=== PATIENT | male | born 1985 | race Caucasian/White ===

== ENCOUNTER 2018-04-10 12:33 | Emergency (ER) | payer OTHER ==
[2018-04-10] MEDS ORDERED: TDAP ADULT 0.5 ML INJ (BOOSTRIX) IM ONE (13:14)
--- NOTE | 2018-04-10 13:14 | EDPHY ---
H & P Smoking Status: Former smoker Time Seen by Provider: 04/10/18 13:13 HPI/ROS: CHIEF COMPLAINT: Right 5th finger laceration HISTORY OF PRESENT ILLNESS: 33-year-old male with out-of-date tetanus works at [employer], had a wine glass breaking his hand sustaining laceration to his right 5th digit proximal phalanx palmar aspect. No paresthesia. No flexor deficits. PHYSICAL EXAM (Prior to examination, patient consented to physical exam, hands were washed and my usual and customary physical exam procedures followed) 1) GENERAL: Well-developed, well-nourished, alert and oriented. Appears to be in no acute distress. 2) HEAD: Normocephalic 3) HEENT: sclera anicteric 4) LUNGS: Breathing comfortably. 5) SKIN: Right 5th digit proximal phalanx palmar aspect 3 cm flap laceration with viable flap tissue. Hinge of flap is on the proximal aspect of the finger. 6) MUSCULOSKELETAL: FDP, FDS intact 7) NEUROLOGIC: Full sensation two-point discrimination intact. (Berta Floyd) Constitutional: Initial Vital Signs Temperature (C) 37 C 04/10/18 12:38 Heart Rate 72 04/10/18 12:38 Respiratory Rate 18 04/10/18 12:38 Blood Pressure 156/95 H 04/10/18 12:38 O2 Sat (%) 96 04/10/18 12:38 O2 Delivery Mode Room Air Allergies/Adverse Reactions: Penicillins Allergy (Verified 04/10/18 12:38) Home Medications: Medication Instructions Recorded NK [No Known Home Meds] 04/10/18 MDM/Departure - [facility] Imaging Results: Images reviewed by myself (Berta Floyd) Procedures: Procedure: Laceration repair. I explained the indications, risks and benefits for both laceration repair and anesthetic administration. Verbal consent was obtained from the patient. The laceration on the right 5th digit was anesthetized using 0.5% bupivicaine without epinephrine digital nerve block. After anesthetic administered the patient was observed for a period of time and had no apparent adverse effects. The wound was cleaned, prepped, draped in normal sterile fashion and explored to its base. No foreign body seen, no foreign bodies palpated. There were no deep structures involved. No tendon injury was identified. The wound was repaired with 8 simple interrupted 5 O Prolene suture. The wound repair was complex. The procedure was performed by myself. Patient has been informed that scarring will occur, although efforts have been made to minimize this. Procedure: Splint AnAluminum finger splint was applied by ER network operations technician. After application of the splint I returned and re-examined the patient. The splint was adequately immobilizing the joint and distal to the splint the patient's circulation and sensation were intact. Patient shows no signs of compartment syndrome. Was given orthopedic precautions. (Berta Floyd) Medications Given: Discontinued Medications Diphtheria/Tetanus/Acell Pertussis (Boostrix) 0.5 ml IM .ONCE ONE Stop: 04/10/18 13:15 Last Admin: 04/10/18 13:33 Dose: 0.5 ml ED Course/Re-evaluation: I saw this patient independently based on established practice protocols. Care of patient under supervision of secondary supervising physician Dr Mcgovern. ( Berta Floyd) The patient was evaluated and managed by the physician certified ophthalmic surgical assistant. I have reviewed this chart and I agree with the findings and plan of care as documented , as indicated by my signature. I am the secondary supervising physician. ( Ayla Mcgovern) - Depart Disposition: Home, Routine, Self-Care Clinical Impression: Finger laceration Qualifiers: Encounter type: initial encounter Finger: little finger Damage to nail status: without damage Foreign body presence: without foreign body Laterality: right Qualified Code(s): S61.216A - Laceration without foreign body of right little finger without damage to nail, initial encounter Condition: Good Instructions: Care For Your Stitches (ED), Laceration (ED) Additional Instructions: Return to the ER if you develop redness, swelling, discharge, warmth to the wound, red streaks going up your arm, or any other symptoms that concern you. Referrals: Return, to the ER in 10 days for suture removal [Other] - As per Instructions
[2018-04-10 15:07] VITALS: BP 131/82
== END 2018-04-10 15:07 | disposition home or self-care (01) ==
PROC: 0HQFXZZ Repair Right Hand Skin, External Approach (ICD-10-PCS; principal; 2018-04-10)
DX: S61.216A Laceration without foreign body of right little finger without damage to nail, initial encounter (principal); Z23 Encounter for immunization; Z87.891 Personal history of nicotine dependence; W25.XXXA Contact with sharp glass, initial encounter; Y92.69 Other specified industrial and construction area as the place of occurrence of the external cause; Y99.0 Civilian activity done for income or pay; Y93.89 Activity, other specified